=== PATIENT | female | born 1955 | race African-American/Black ===

== ENCOUNTER 2019-11-03 10:24 | Outpatient (CLI) | payer OTHER ==
--- NOTE | 2019-11-03 10:58 | MMO ---
Bilateral MAMMO Bilat Screen [facility]. CLINICAL HISTORY: Patient is 64 years old and is seen for screening. The patient has no family history of breast cancer. The patient has no personal history of cancer. VIEWS: The views performed were: bilateral craniocaudal with tomosynthesis and bilateral mediolateral oblique with tomosynthesis. FILMS COMPARED: The present examination has been compared to prior imaging studies performed at [facility] on 09/23/2011, 12/03/2012 and 03/27/2015. This study has been interpreted with the assistance of computer-aided detection. MAMMOGRAM FINDINGS: There are scattered fibroglandular densities. There are no suspicious masses, suspicious calcifications, or new areas of architectural distortion. IMPRESSION: THERE IS NO MAMMOGRAPHIC EVIDENCE OF MALIGNANCY. A ROUTINE FOLLOW-UP MAMMOGRAM IN 1 YEAR IS RECOMMENDED. THE RESULTS OF THIS EXAM WERE SENT TO THE PATIENT. ACR BI-RADS Category 1 - Negative MAMMOGRAPHY NOTE: 1. A negative mammogram report should not delay a biopsy if a dominant of clinically suspicious mass is present. 2. Approximately 10% to 15% of breast cancers are not detected by mammography. 3. Adenosis and dense breasts may obscure an underlying neoplasm. Reported by: GISELA FISHER MD Electonically Signed: [id number]
== END 2019-11-03 10:25 | disposition home or self-care (01) ==
LOC: BICMAMMO 10:24
PROVIDERS: ATTEND Family Medicine
DX: Z12.31 Encounter for screening mammogram for malignant neoplasm of breast (principal)
CPT/HCPCS: 77063; 77067

== ENCOUNTER 2019-12-15 09:01 | Outpatient (CLI) | payer OTHER ==
--- NOTE | 2019-12-15 10:36 | RAD ---
RIGHT KNEE 2 VIEWS: Date: 12/15/2019 HISTORY: Arthritis, pain, soreness, swelling. FINDINGS/IMPRESSION: Mild osteoarthrosis and degenerative change. No fracture, dislocation, or other acute process. POS: AH
== END 2019-12-15 09:02 | disposition home or self-care (01) ==
LOC: BICRAD 09:01
PROVIDERS: ATTEND Family Medicine
DX: M17.11 Unilateral primary osteoarthritis, right knee (principal)

== ENCOUNTER 2020-02-07 10:27 | Outpatient (CLI) | payer OTHER ==
[2020-02-08 14:57] LABS: SARS-CoV-2 MS2 Positive; SARS-CoV-2 N Gene Negative; SARS-CoV-2 S Gene Negative; SARS-CoV-2 by NAA Not Detected (NotDetected); SARS-CoV-2 orf1ab Negative
== END 2020-02-07 10:28 | disposition home or self-care (01) ==
LOC: LABBT 10:27
PROVIDERS: ATTEND Specialist
DX: E04.1 Nontoxic single thyroid nodule (principal); Z20.828 Contact with and (suspected) exposure to other viral communicable diseases
CPT/HCPCS: 87635; U0003

== ENCOUNTER → 2020-02-10 | Day surgery (SDC) | payer OTHER ==
[2020-02-09 10:07] VITALS: BMI 34.9
--- NOTE | 2020-02-10 16:55 | ULT ---
THYROID ULTRASOUND: HISTORY: Thyroid nodule. COMPARISON: None. FINDINGS: Thyroid isthmus measures 0.44 cm. Right thyroid lobe is surgically absent. Left thyroid lobe measures 2.0 x 2.4 x 5.0 cm. THYROID NODULES: There are multiple anechoic foci in the left thyroid lobe compatible with thyroid cysts. The largest cyst is in the lower pole of the left thyroid lobe measuring 2.0 x 1.6 x 2.1 cm. There are no solid or mixed/solid cystic masses in the left thyroid lobe. IMPRESSION: Multiple cysts in the left thyroid lobe. TIRADS calculator score TR1, benign. POS: SON
== END ==
LOC: ULT 12:08
PROVIDERS: ATTEND Specialist
DX: E04.1 Nontoxic single thyroid nodule (principal); J38.00 Paralysis of vocal cords and larynx, unspecified; E11.9 Type 2 diabetes mellitus without complications; I10 Essential (primary) hypertension; K21.9 Gastro-esophageal reflux disease without esophagitis; E66.9 Obesity, unspecified; Z68.34 Body mass index [BMI] 34.0-34.9, adult; Z79.84 Long term (current) use of oral hypoglycemic drugs; Z79.899 Other long term (current) drug therapy; Z87.891 Personal history of nicotine dependence; Z88.8 Allergy status to other drugs, medicaments and biological substances
CPT/HCPCS: 76536

== ENCOUNTER 2020-03-17 13:49 | Outpatient (CLI) | payer OTHER ==
[2020-03-17] MEDS ORDERED: Magnevist 469MG/ML 20 ML VIAL ONE (14:20)
--- NOTE | 2020-03-17 15:24 | MRI ---
MRI BRAIN WITH AND WITHOUT CONTRAST: DATE: 03/17/2020 HISTORY: 64-year-old female with vocal cord paralysis. TECHNIQUE: Multiplanar, multisequence MRI of the brain obtained pre and post IV injection of gadolinium based co ntrast agent. FINDINGS: The ventricles are normal in size and configuration. There is no midline shift or any other evidence of mass effect. There is no extra-axial fluid collection. A few tiny T2 and FLAIR hyperintensities in the cerebral deep white matter consistent with minimal chronic ischemic white matter changes, not unusual for this age group. There is otherwise no major intra-axial signal abnormality, abnormal enhancement, mass, recent hemorrhage, or restricted diffusion. IMPRESSION: Essentially normal brain.
== END 2020-03-17 13:50 | disposition home or self-care (01) ==
LOC: BICMRI 13:49
PROVIDERS: ATTEND Specialist
DX: J38.01 Paralysis of vocal cords and larynx, unilateral (principal)
CPT/HCPCS: 70553; 82565; A9579

== ENCOUNTER 2020-04-24 07:12 | Outpatient (CLI) | payer OTHER ==
[2020-04-25 06:31] LABS: SARS-CoV-2 MS2 Positive; SARS-CoV-2 N Gene Negative; SARS-CoV-2 S Gene Negative; SARS-CoV-2 by NAA Not Detected (NotDetected); SARS-CoV-2 orf1ab Negative
== END 2020-04-24 07:13 | disposition home or self-care (01) ==
LOC: LABBT 07:12
PROVIDERS: ATTEND Specialist
DX: Z01.818 Encounter for other preprocedural examination (principal); Z20.828 Contact with and (suspected) exposure to other viral communicable diseases; J38.01 Paralysis of vocal cords and larynx, unilateral; R49.0 Dysphonia; R13.10 Dysphagia, unspecified
CPT/HCPCS: 85014; 87635; 93005; 93010; U0003

== ENCOUNTER 2020-04-27 10:24 | Day surgery (SDC) | payer OTHER ==
[2020-04-26 10:37] VITALS: BMI 35.2
[2020-04-27] MEDS ORDERED: Succinylcholine 200 MG/10 ml SYRINGE FS ONE (10:40)
[2020-04-27] MEDS ORDERED: PROPOFOL 200 MG/20 ML VIAL ONE (10:40)
[2020-04-27] MEDS ORDERED: Dexamethasone 20 MG/5 ML VIAL ONE (10:40)
[2020-04-27] MEDS ORDERED: Lidocaine 1% PF 5 ML VIAL ONE (10:40)
[2020-04-27] MEDS ORDERED: Ondansetron PF 4 MG/2 ML Vial ONE (10:40)
[2020-04-27] MEDS ORDERED: Fentanyl 100 MCG/2 ML VIAL ONE ×2 (13:07→14:11)
[2020-04-27] MEDS ORDERED: Midazolam HCl 2 mg/2 ml Vial ONE (13:07)
[2020-04-27] MEDS ORDERED: Propofol 500 MG/50 ML VIAL ONE (13:07)
[2020-04-27] MEDS ORDERED: EPINEPHrine 1 MG/ML AMP ONE (13:08)
--- NOTE | 2020-04-27 15:36 | OP ---
DATE OF PROCEDURE: 04/27/2020 PREOPERATIVE DIAGNOSIS: Right true vocal cord paralysis. POSTOPERATIVE DIAGNOSIS: Right true vocal cord paralysis. PROCEDURE PERFORMED: Microsuspension laryngoscopy with right true vocal cord injection using Prolaryn. PROCEDURE IN DETAIL: After consent was obtained, the patient was identified and brought to the operating room, placed on the operating room table in supine position. General endotracheal anesthesia was obtained with a jet ventilating endotracheal tube and the patient was relaxed and positioned for surgery. The larynx was suspended with an operating laryngoscope and suspended from the patient's chest. We then under microscopic visualization visualized the vocal cord and was able to medialize the right cord by injecting lateral to the right vocal cord and the vocal sulcus. The care was made not to overcorrect the vocal cord and to do it in an evenly distributed fashion. At the end of the procedure, the larynx was suctioned, irrigated, and sprayed with topical lidocaine. The patient was then awakened, extubated, taken to recovery room in a stable condition prior to discharge home. Job ID: [id number]
== END 2020-04-27 15:40 | disposition home or self-care (01) ==
LOC: SDC 10:24
PROVIDERS: ATTEND Specialist
PROC: 3E0F8GC Introduction of Other Therapeutic Substance into Respiratory Tract, Via Natural or Artificial Opening Endoscopic (ICD-10-PCS; principal; 2020-04-27)
DX: J38.01 Paralysis of vocal cords and larynx, unilateral (principal); E11.9 Type 2 diabetes mellitus without complications; I10 Essential (primary) hypertension; K21.9 Gastro-esophageal reflux disease without esophagitis; M10.9 Gout, unspecified; Z79.84 Long term (current) use of oral hypoglycemic drugs; Z79.899 Other long term (current) drug therapy; Z87.891 Personal history of nicotine dependence; Z88.5 Allergy status to narcotic agent; Z88.8 Allergy status to other drugs, medicaments and biological substances
CPT/HCPCS: J0171; J1100; J2250; J2405; J2704; J3010

== ENCOUNTER 2020-09-25 14:57 | Outpatient (CLI) | payer MEDICARE, OTHER ==
[~2020-09-25 14:57] MED LIST: Iopamidol 370 76% 100 ML VIAL ONE
== END 2020-09-25 14:58 | disposition home or self-care (01) ==
LOC: BICCT 14:57
PROVIDERS: ATTEND Family Medicine
DX: R10.9 Unspecified abdominal pain (principal)
CPT/HCPCS: 74177; Q9967

== ENCOUNTER 2021-02-04 12:35 | Emergency (ER) | payer MEDICARE, OTHER ==
[2021-02-04 23:32] LABS: SARS-CoV-2 PCR by NAA Not Detected (NotDetected)
== END 2021-02-04 13:41 | disposition home or self-care (01) ==
LOC: ERS 12:35
DX: J32.1 Chronic frontal sinusitis (principal); B96.89 Other specified bacterial agents as the cause of diseases classified elsewhere; E11.9 Type 2 diabetes mellitus without complications; I10 Essential (primary) hypertension; Z20.822 Contact with and (suspected) exposure to COVID-19
CPT/HCPCS: 99283; U0003; U0005

== ENCOUNTER 2022-07-08 15:44 | Outpatient (CLI) | payer MEDICARE, OTHER | END 2022-07-08 15:45 | disposition home or self-care (01) | LOC: BICRAD 15:44 | PROVIDERS: ATTEND Family Medicine | DX: M54.2 Cervicalgia (principal); M54.6 Pain in thoracic spine; M47.812 Spondylosis without myelopathy or radiculopathy, cervical region | CPT/HCPCS: 72050; 72072 ==

== ENCOUNTER 2022-08-26 14:26 | Outpatient (CLI) | payer MEDICARE, OTHER | END 2022-08-26 14:27 | disposition home or self-care (01) | LOC: BICMAMMO 14:26 | PROVIDERS: ATTEND Family Medicine | DX: Z12.31 Encounter for screening mammogram for malignant neoplasm of breast (principal) | CPT/HCPCS: 77063; 77067 ==

== ENCOUNTER 2022-11-20 09:37 | Outpatient (CLI) | payer MEDICARE, OTHER | END 2022-11-20 09:38 | disposition home or self-care (01) | LOC: BICMAMMO 09:37 | PROVIDERS: ATTEND Family Medicine | DX: Z13.820 Encounter for screening for osteoporosis (principal); Z78.0 Asymptomatic menopausal state | CPT/HCPCS: 77080 ==

== ENCOUNTER 2023-11-07 08:45 | Outpatient (CLI) | payer MEDICARE, OTHER | END 2023-11-07 08:46 | disposition home or self-care (01) | LOC: BICCT 08:45 | PROVIDERS: ATTEND Family Medicine | DX: R31.29 Other microscopic hematuria (principal); N73.8 Other specified female pelvic inflammatory diseases | CPT/HCPCS: 74178; 82565 ==

== ENCOUNTER 2025-01-24 10:37 | Outpatient (CLI) | payer MEDICARE, OTHER | END 2025-01-24 10:38 | disposition home or self-care (01) | LOC: BICCT 10:37 | PROVIDERS: ATTEND Family Medicine | DX: R42 Dizziness and giddiness (principal) | CPT/HCPCS: 70450 ==